=== PATIENT | male | born 1995 | race Caucasian/White ===

== ENCOUNTER 2016-11-03 16:36 | Emergency (ER) | payer OTHER ==
[~2016-11-03] VITALS: Ht 170.2 cm; Wt 76.0 kg
[2016-11-03 16:39] VITALS: Ht 170.2 cm; Wt 76.0 kg
[2016-11-03] MEDS ORDERED: HYDR-906 PO (16:56)
[2016-11-03] MEDS ORDERED: ORPH100T PO (16:56)
[2016-11-03] MEDS ORDERED: IBUP-1542 PO (16:56)
[2016-11-03] MEDS ORDERED: HYDROCODONE/APAP (5/325) TAB PO ONE (17:00)
[2016-11-03] MEDS ORDERED: IBUPROFEN 600 MG TAB PO ONE (17:00)
--- NOTE | 2016-11-03 17:13 | ERD ---
ER Documentation Chief Complaint Date/Time DATE: 11/03/16 TIME: 17:07 Chief Complaint BACK PAIN X 5 DAYS HPI This is a 21-year-old male presents to the ER with back pain for the last 5 days. Back pain is located on bilateral sides of the middle of his back. Patient states that his back feels very tense. He has had an episode like this in the past however this episode has been much longer and more severe. Patient denies any trauma. Patient states that he was eating when his back pain started. Back pain is worse whenever he is trying to move. He denies any fevers or chills. He denies any numbness or tingling of his lower extremities. He denies any urinary bowel incontinence he denies any urinary frequency, dysuria, hematuria. He denies any IV drug use. Patient does have a past medical history of scoliosis. ROS 12 point review of systems was done, all negative except per HPI. Medications Home Meds Active Scripts Hydrocodone/Acetaminophen ([place] 5-325 Tablet) 1 Each Tablet, 1 TAB PO Q6H Y for PAIN, #7 TAB Prov:VIPUL,ALEX C 11/03/16 Orphenadrine Citrate (Norflex) 100 Mg Tablet.sa, 100 MG PO BID for 7 Days, TAB.SA Prov:VIPUL,ALEX C 11/03/16 Ibuprofen* (Motrin*) 600 Mg Tab, 600 MG PO Q6, #30 TAB Prov:VIPUL,ALEX C 11/03/16 Allergies Allergies: Coded Allergies: No Known Allergy (Unverified , 11/03/16) PMhx/Soc Medical and Surgical Hx: pt denies Medical Hx, pt denies Surgical Hx History of Surgery: No Anesthesia Reaction: No Hx Neurological Disorder: No Hx Respiratory Disorders: No Hx Cardiac Disorders: No Hx Psychiatric Problems: No Hx Miscellaneous Medical Probl: No Hx Alcohol Use: No Hx Substance Use: No Hx Tobacco Use: No Smoking Status: Never smoker Physical Exam Vitals Vital Signs Date Time Temp Pulse Resp B/P Pulse Ox O2 Delivery O2 Flow Rate FiO2 11/03/16 16:39 98.0 67 18 130/72 98 Physical Exam GENERAL: The patient is well developed and appropriate for usual state of health , in no apparent distress. HEENT: Atraumatic. CHEST: Clear to auscultation bilaterally. There are no rales, wheezes or rhonchi. HEART: Regular rate and rhythm. No murmurs, clicks, rubs or gallops. BACK: Patient is able to ambulate in the ER. Patient is sitting down on the stretcher in no obvious distress. There is no surface trauma. No abrasions scars ecchymosis or lacerations. Patient is tender to palpation to the mid paraspinal muscles. There is no vertebral point tenderness, step-offs. No CVA tenderness to percussion, no SI notch tenderness, no saddle anesthesia. Patient is able to stand, painful back flexion and extension. Heel and toe walk with good strength. Dorsi and plantarflexion with adequate strength. Negative straight leg tests. Normal pulses. Normal reflexes. Neurologically intact to L4 L5-S1. EXTREMITIES: Equal pulses bilaterally. There is no peripheral clubbing, cyanosis or edema. No focal swelling or erythema. Full range of motion. Grossly neurovascularly intact. NEURO: Alert and oriented. Results 24 hrs Current Medications Medications (Trade) Dose Ordered Sig/Julio César Route PRN Reason Start Time Stop Time Status Last Admin Dose Admin Ibuprofen (Motrin) 600 mg ONCE ONCE PO 11/03/16 17:00 11/03/16 17:01 DC 11/03/16 17:03 Acetaminophen/ Hydrocodone Bitart ([place] (5/325)) 1 tab ONCE ONCE PO 11/03/16 17:00 11/03/16 17:01 DC 11/03/16 17:03 Procedures/MDM Differential Diagnosis includes but is not limited to back strain, vertebral fracture, epidural abscess, cauda equina, herniated disc, AAA rupture, kidney stones, UTI, pyelonephritis. This is a 21-year-old male presents to the ER with back pain for the last 5 days. Patient does not have a history of trauma and his physical examination is benign. Suspicion for fracture dislocation is low. I do not believe the patient needs an x-ray at this time as he does not have any vertebral point tenderness. Patient is afebrile and well-appearing. He is neurovascularly intact and has full range of motion of his lower extremities. Suspicion for cauda equina or epidural abscess is low. Patient will be sent home with ibuprofen, Norflex. He needs to follow-up with his primary care doctor within 1-2 days or return to ER sooner if symptoms worsen. My medical decision making was shared with the patient he understands and agrees with plan. Departure Diagnosis: Primary Impression: Back pain Condition: Stable Patient Instructions: Back Pain (Acute Or Chronic) Additional Instructions: Call your primary care doctor TOMORROW for an appointment during the next 1-2 days.See the doctor sooner or return here if your condition worsens before your appointment time. ALEX MATTHEW Nov 03, 2016 17:13
== END 2016-11-03 17:05 | disposition home or self-care (01) ==
LOC: FTE 16:36
DX: M54.9 Dorsalgia, unspecified (principal)
CPT/HCPCS: Z7502; Z7610; 99284

== ENCOUNTER 2017-06-15 10:14 | Emergency (ER) | END 2017-06-15 13:12 | disposition home or self-care (01) ==